=== PATIENT | female | born 1975 | race Caucasian/White ===

== ENCOUNTER 2019-10-02 11:06 | Emergency (ER) | payer BC ==
[2019-10-02 11:41] VITALS: BP 125/72
--- NOTE | 2019-10-02 11:51 | UC ---
Throat Pain/Nasal Reese HPI - HPI Summary HPI Summary: 44-year-old female with a sore throat over the past 4 days. She denies any fever or chills. - History of Current Complaint Chief Complaint: UCGeneralIllness Stated Complaint: ST Time Seen by Provider: 10/02/19 11:40 Hx Obtained From: Patient Hx Last Menstrual Period: 09/27/19 ?: No Onset/Duration: Gradual Onset Severity: Mild Pain Intensity: 6 Cough: None Associated Signs & Symptoms: Positive: Negative - Allergies/Home Medications Allergies/Adverse Reactions: Allergies Allergy/AdvReac Type Severity Reaction Status Date / Time No Known Allergies Allergy Verified 10/02/19 11:41 Home Medications: Home Medications NK [No Home Medications Reported] 10/02/19 [History Confirmed 10/02/19] PMH/Surg Hx/FS Hx/Imm Hx Previously Healthy: Yes - Surgical History Surgical History: None Surgery Procedure, Year, and Place: - Family History Known Family History: Positive: Non-Contributory - Social History Occupation: Employed Full-time Lives: With Family Alcohol Use: Occasionally Substance Use Type: None Smoking Status (MU): Smoker, Current Status Unknown Type: eCigarettes Review of Systems All Other Systems Reviewed And Are Negative: Yes Constitutional: Positive: Chills ENT: Positive: Sore Throat Is Patient Immunocompromised?: No Physical Exam Triage Information Reviewed: Yes Appearance: Well-Appearing, No Pain Distress, Well-Nourished Vital Signs: Initial Vital Signs Temp 98.2 F 10/02/19 11:38 Pulse 80 10/02/19 11:38 Resp 16 10/02/19 11:38 BP 125/72 10/02/19 11:38 Pulse Ox 99 10/02/19 11:38 Vital Signs Reviewed: Yes Eyes: Positive: Conjunctiva Clear ENT: Positive: Hearing grossly normal, Pharynx normal, TMs normal, Tonsillar swelling, Uvula midline. Negative: Tonsillar exudate, Trismus, Muffled voice, Hoarse voice Neck: Positive: Supple, Nontender, No Lymphadenopathy Respiratory: Positive: Lungs clear, Normal breath sounds, No respiratory distress, No accessory muscle use Cardiovascular: Positive: RRR, No Murmur, Pulses Normal, Brisk Capillary Refill Musculoskeletal Exam: Normal Neurological Exam: Normal Psychological Exam: Normal Skin Exam: Normal Throat Pain/Nasal Course/Dx - Course Course Of Treatment: Rapid strep test negative. The patient works at the [employer] and I think this is a viral sore throat that is going around the [employer] [place]. She is to follow-up with her primary care provider if no improvement in 4 or 5 days. - Differential Dx/Diagnosis Provider Diagnosis: Pharyngitis Discharge ED - Sign-Out/Discharge Documenting (check all that apply): Patient Departure All imaging exams completed and their final reports reviewed: No Studies - Discharge Plan Condition: Good Disposition: HOME Patient Education Materials: Pharyngitis (ED) Forms: *Work Release Referrals: No Primary Care Phys,NOPCP [Primary Care Provider] - [facility] [Outside] Additional Instructions: Increase fluids, warm saltwater gargles, throat lozenges for comfort. May take Tylenol every 4 hours or Motrin every 8 hours as needed for pain or fever. [facility] 4 or 5 days if continued sore throat. - Billing Disposition and Condition Condition: GOOD Disposition: Home
== END 2019-10-02 12:03 | disposition home or self-care (01) ==
LOC: UCCORT 11:06
DX: J02.9 Acute pharyngitis, unspecified (principal); F17.290 Nicotine dependence, other tobacco product, uncomplicated
CPT/HCPCS: 87651; 99211; G0463